=== PATIENT | male | born 1970 | race Asian ===

== ENCOUNTER 2022-01-18 07:31 | Emergency (ER) | payer SELFPAY ==
[2022-01-18 07:43] VITALS: BMI 25.8
[2022-01-18] MEDS ORDERED: ASPIRIN 81 MG CHEWABLE TABLETS PO ONE (08:02)
[2022-01-18] MEDS ORDERED: ASPIRIN 81 MG CHEWABLE TABLETS ONE (08:17)
[2022-01-18 08:51] LABS: BASO % 0.4 % (0-2.0); EOS % 0.8 % (0-4.5); HEMATOCRIT 46.1 % (35.4-49); HEMOGLOBIN 15.9 GM/dL (11.7-16.9); LYMPH % 11.3 % (8-40); MCH 29.5 pg (25.7-33.7); MCHC 34.4 g/dl (32.0-35.9); MEAN CELL VOLUME 85.8 fl (80-96); MEAN PLT VOLUME 7.2 fl (7.5-11.1); MONO % 7.6 % (3.8-10.2); NEUT % 79.9 % (42.8-82.8); PLATELET COUNT 210 10^3/uL (134-434); RBC 5.38 M/mm3 (4.00-5.60); RDW 13.9 % (11.9-15.9); WHITE BLOOD COUNT 8.7 K/mm3 (4.0-10.0)
[2022-01-18 08:58] LABS: INR 1.03 (0.83-1.09); PROTHROMBIN TIME (PATIENT) 11.8 SEC (9.7-13.0)
[2022-01-18 09:00] LABS: CHLORIDE 102 mmol/L (98-107); SODIUM 137 mmol/L (136-145)
[2022-01-18 09:01] LABS: ACTIVATED PTT 20.7 SECONDS (25.2-36.5)
[2022-01-18 09:02] LABS: ALBUMIN 4.1 g/dl (3.4-5.0); BLOOD UREA NITROGEN 17.2 mg/dL (7-18); CALCIUM 9.4 mg/dL (8.5-10.1); GLUCOSE,RANDOM 212 mg/dL (74-106)
[2022-01-18 09:05] LABS: CREATININE 1.2 mg/dL (0.55-1.3); SGOT/AST 36 U/L (15-37); SGPT/ALT 35 U/L (13-61)
[2022-01-18 09:07] LABS: BILIRUBIN,TOTAL 0.7 mg/dL (0.2-1); TOT PROT 7.8 g/dl (6.4-8.2)
[2022-01-18 09:08] LABS: ALK PHOS 102 U/L (45-117); ANION GAP 13 MMOL/L (8-16); CO2 23 mmol/L (21-32)
[2022-01-18] MEDS ORDERED: CLOPIDOGREL BISULFATE 300 MG TABLET PO ONE (09:09)
[2022-01-18] MEDS ORDERED: CLOPIDOGREL BISULFATE 300 MG TABLET ONE (09:18)
[2022-01-18] MEDS ORDERED: HEPARIN NA (PORCINE) 5,000 UNITS/ML 1ML VIAL IVPUSH PRN ×2 (09:26)
[2022-01-18] MEDS ORDERED: HEPARIN SOD,PORK IN 0.45% NACL 25,000 UNITS/500 ML INFUS.BAG IVPB SCH (09:30)
[2022-01-18 09:36] VITALS: RESP 17
[2022-01-18 09:36] LABS: PLATELET ESTIMATE ADEQUATE
[2022-01-18] MEDS ORDERED: HEPARIN NA (PORCINE) 5,000 UNITS/ML 1ML VIAL ONE (10:08)
[2022-01-18] MEDS ORDERED: HEPARIN INFUSION - 25,000 UNITS/500 ML INFUS.BAG IVPB ONE (10:08)
[2022-01-18 10:23] VITALS: TEMP 97.4
[2022-01-18 10:51] VITALS: BP 132/95; PULSE 84
[2022-01-19 12:30] LABS: LIPASE 109 U/L (73-393)
== END 2022-01-18 10:58 | disposition short-term general hospital (02) ==
LOC: JER 07:31
PROC: 3E033GC Introduction of Other Therapeutic Substance into Peripheral Vein, Percutaneous Approach (ICD-10-PCS; principal; 2022-01-18)
PROC: 3E033GC Introduction of Other Therapeutic Substance into Peripheral Vein, Percutaneous Approach (ICD-10-PCS; 2022-01-18)
PROC: 3E033GC Introduction of Other Therapeutic Substance into Peripheral Vein, Percutaneous Approach (ICD-10-PCS; 2022-01-18)
DX: I24.9 Acute ischemic heart disease, unspecified (principal); R07.2 Precordial pain
CPT/HCPCS: 36415; 71275-TC; 74174-TC; 80053; 83690; 84484; 85025; 85379; 85610; 85730; 93005; 93010; 99291; C9803-CS; Q9967; U0003; U0005